=== PATIENT | male | born 1975 | race Caucasian/White ===

== ENCOUNTER 2022-04-22 12:17 | Emergency (ER) | payer OTHER, SELFPAY ==
[2022-04-22 12:35] VITALS: PULSE 97; RESP 18; O2SAT 98; BMI 21.5
--- NOTE | 2022-04-22 13:56 | EXP.UTC ---
Discharge Plan Disposition Patient Disposition: Home, Self-Care Condition: Good Prescriptions Prescriptions: New levofloxacin 750 mg tablet 750 mg PO DAILY Qty: 10 0RF methylprednisolone [Medrol ([place])] 4 mg tablets,dose pack 4 mg PO DAILY Qty: 21 0RF Referrals Follow up/Referrals: Provider,Referral, MD [Primary Care Provider] - See instructions Activity Restrictions/Add. Instructions Additional Instructions/Restrictions: Start antibiotic today. Be sure to complete entire prescription even if feeling better Tylenol and ibuprofen as needed for pain or fever Humidifier/vaporizer/hot steamy shower Follow-up with primary care tomorrow. Follow-up immediately in the ER of the [facility] for new or worsening symptoms or no noticeable improvement over the next 48-72 hours. Stop smoking . Clinical Impressions Clinical Impression: Bronchitis Instructions Patient Instructions: Acute Bronchitis Discharge ED Provider: Ernestina ([facility])Zain Rose Marie [facility] HPI General Stated complaint: Congestion, Cough, Headache Mode of Arrival: Ambulatory Source of Information: Patient Limitations: No Limitations Time Seen by Provider: 04/22/22 13:56 Description of Symptoms (Recalled from Triage Doc. by RN): c/o fever and MELGOZA with congestion and green mucus off and on for 2 weeks History of Present Illness Provider Complaint: 46 yr old male presents for thick sputum production in trach for 2 weeks and the sputum has increased and turned dark green. fever and melgoza Related Data Previous Rx's Medication Instructions Recorded levofloxacin 750 mg tablet 750 mg PO DAILY #10 tabs 04/22/22 methylprednisolone 4 mg tablets in 4 mg PO DAILY #21 tabs 04/22/22 a dose pack (Medrol ([place])) Allergies Allergy/AdvReac Type Severity Reaction Status Date / Time calcium carbonate Allergy Verified 04/22/22 14:10 [From Pepcid Complete] famotidine [From Pepcid] Allergy Verified 04/22/22 14:10 magnesium Allergy Verified 04/22/22 14:10 [From Pepcid Complete] [facility] Disclaimer: The information contained in this section may have been updated after the patient was seen, as this information can be updated by other users. 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) Smoking Status: Former smoker alcohol intake: never current occupational status: disabled Travel in the last 8 weeks: None ROS Obtained: Yes All systems reviewed & no additional complaints except as documented Constitutional Constitutional: Reports system reviewed and no additional complaints, except as documented and Reports fever(s) Eyes Eyes: Reports system reviewed and no additional complaints, except as documented ENT Ears, Nose, Mouth, and Throat: Reports system reviewed and no additional complaints, except as documented and Reports as per HPI Cardiovascular Cardiovascular: Reports system reviewed and no additional complaints, except as documented Respiratory Respiratory: Reports system reviewed and no additional complaints, except as documented, Reports as per HPI, Reports change in phlegm color, Reports cough, Reports excessive phlegm production and Reports cough with sputum production Gastrointestinal Gastrointestingal: Reports system reviewed and no additional complaints, except as documented Genitourinary Male Genitourinary: Reports system reviewed and no additional complaints, except as documented Musculoskeletal Musculoskeletal: Reports system reviewed and no additional complaints, except as documented Integumentary/Breasts Skin/Breast: Reports system reviewed and no additional complaints, except as documented Neurologic Neurologic: Reports system reviewed and no additional complaints, except as documented Endocrine Endocrine: Reports system reviewed and no additional complaints, except as documented Hematologic/Lymphatic Henatologic/Lymphatic: Reports system reviewed and no additional complaints, except as documented Allergic/Im
[2022-04-22 14:00] VITALS: BP 125/73; PULSE 66; RESP 19; TEMP 37.1; O2SAT 98; BMI 21.5
[2022-04-22 14:15] VITALS: BP 125/73; PULSE 66; RESP 19; TEMP 37.1; O2SAT 98
== END 2022-04-22 14:17 | disposition home or self-care (01) ==
PROVIDERS: Emergency Provider Nurse Practitioner Family
DX: R05.9 Cough, unspecified (principal); R09.81 Nasal congestion; R51.9 Headache, unspecified; Z79.52 Long term (current) use of systemic steroids; Z79.899 Other long term (current) drug therapy; Z88.8 Allergy status to other drugs, medicaments and biological substances; Z87.891 Personal history of nicotine dependence
CPT/HCPCS: 87070; 87205; 99213; G0463